=== PATIENT | female | born 1990 | race African-American/Black ===

== ENCOUNTER 2021-08-22 21:30 | Emergency (ER) | payer SELFPAY ==
[2021-08-22 23:03] VITALS: BP 128/83
[2021-08-23] MEDS ORDERED: SODIUM CHLORIDE 0.9% 1000 ML 1,000 ML IV ONE (01:19)
[2021-08-23] MEDS ORDERED: ONDANSETRON 4 MG/2 ML INJ IV ONE (01:19)
[2021-08-23] MEDS ORDERED: FAMOTIDINE 20 MG/2 ML INJ IV ONE (01:19)
[2021-08-23] MEDS ORDERED: DIPHENOXYLATE/ATROPINE TAB PO ONE (01:19)
[2021-08-23 01:45] LABS: Basophils % (Auto) 1.1 % (0.0-1.8); Eosinophils # (Auto) 0.1 K/mm3 (0.0-0.4); Eosinophils % (Auto) 2.2 % (0.0-4.3); Hemoglobin 12.3 gm/dl (10.1-14.3); Lymphocytes # (Auto) 1.2 K/mm3 (1.2-5.4); Mean Corpuscular HGB Conc 33 % (30-34); Mean Corpuscular Volume 90 fl (79-97); Monocytes # (Auto) 0.3 K/mm3 (0.0-0.8); Monocytes % (Auto) 8.2 % (0.0-7.3); Platelet Count 289 K/mm3 (140-440); Red Blood Count 4.12 M/mm3 (3.65-5.03); Red Cell Distribution Width 13.9 % (13.2-15.2)
[2021-08-23 02:09] LABS: Alanine Aminotransferase 42 units/L (7-56); Albumin 4.5 g/dL (3.9-5); BUN/Creatinine Ratio 13; Blood Urea Nitrogen 10 mg/dL (7-17); Hemolysis Index 17
[2021-08-23 02:25] LABS: Bacteria,Urine 4+ /HPF (Negative); Bilirubin,Urine NEG (Negative); Blood,Urine LG (Negative); Color,Urine Yellow (Yellow); Mucus,Urine FEW /HPF; Protein,Urine <15 mg/dL mg/dL (Negative); Urobilinogen,Urine < 2.0 mg/dL (<2.0)
[2021-08-23] MEDS ORDERED: cefTRIAXone/NS 1 GM/50 ML 1 GM/50 ML BAG IV ONE (02:48)
--- NOTE | 2021-08-23 05:13 | Emergency Department Report ---
ED N/V/D HPI - General Chief complaint: Abdominal Pain Stated complaint: NOT FEELING WELL Source: patient Mode of arrival: Ambulatory Limitations: No Limitations - History of Present Illness Initial comments: Patient is a nulliparous 30-year-old [place] female with no past medical history who presented to the ED with complaint of acute onset persistent headache, body aches and pains, diarrhea, nausea and mild diffuse abdominal pain for the last 3 days after eating at a restaurant. Patient states that she has not been able to eat anything in the last 24 hours because of persistent diarrhea and nausea. Patient denies dizziness, syncope, fever, chills, cough, sore throat, nasal and sinus congestion, dysuria, urinary frequency and urgency, vaginal discharge or vaginal bleeding and low back pain. MD complaint: nausea, vomiting, diarrhea -: Sudden, days(s) - Related Data Previous Rx's Medication Instructions Recorded Last Taken Type Diphenoxylate HCl/Atropine 10 ml PO Q8H PRN #120 ml 08/23/21 Unknown Rx [Diphenoxylate-Atropine Liq] Ibuprofen [Motrin] 600 mg PO Q8H PRN #24 tablet 08/23/21 Unknown Rx Ondansetron [Zofran Odt] 4 mg PO Q8HR PRN #15 tab.rapdis 08/23/21 Unknown Rx Sulfamethoxazole/Trimethoprim 1 each PO Q12H #20 tablet 08/23/21 Unknown Rx [Bactrim DS TAB] Allergies Allergy/AdvReac Type Severity Reaction Status Date / Time No Known Allergies Allergy Unverified 10/19/14 23:08 ED Review of Systems ROS: Stated complaint: NOT FEELING WELL Other details as noted in HPI Constitutional: denies: chills, fever Eyes: denies: eye pain, eye discharge, vision change ENT: denies: ear pain, throat pain Respiratory: denies: cough, shortness of breath, wheezing Cardiovascular: denies: chest pain, palpitations Endocrine: no symptoms reported Gastrointestinal: abdominal pain, nausea, diarrhea Genitourinary: denies: urgency, dysuria, discharge Musculoskeletal: denies: back pain, joint swelling, arthralgia Skin: denies: rash, lesions Neurological: headache. denies: weakness, paresthesias Psychiatric: denies: anxiety, depression Hematological/Lymphatic: denies: easy bleeding, easy bruising ED Past Medical Hx - Past Medical History Previous Medical History?: No - Surgical History Past Surgical History?: No - Social History Smoking Status: Never Smoker Substance Use Type: None - Medications Home Medications: Home Medications Medication Instructions Recorded Confirmed Last Taken Type Diphenoxylate HCl/Atropine 10 ml PO Q8H PRN #120 ml 08/23/21 Unknown Rx [Diphenoxylate-Atropine Liq] Ibuprofen [Motrin] 600 mg PO Q8H PRN #24 tablet 08/23/21 Unknown Rx Ondansetron [Zofran Odt] 4 mg PO Q8HR PRN #15 tab.rapdis 08/23/21 Unknown Rx Sulfamethoxazole/Trimethoprim 1 each PO Q12H #20 tablet 08/23/21 Unknown Rx [Bactrim DS TAB] ED Physical Exam - General Limitations: No Limitations General appearance: alert, in no apparent distress - Head Head exam: Present: atraumatic, normocephalic, normal inspection - Eye Eye exam: Present: normal appearance, PERRL, EOMI Pupils: Present: normal accommodation - ENT ENT exam: Present: normal exam, normal orophraynx, mucous membranes moist, TM's normal bilaterally, normal external ear exam - Neck Neck exam: Present: normal inspection, full ROM - Respiratory Respiratory exam: Present: normal lung sounds bilaterally. Absent: respiratory distress, wheezes, rales, rhonchi, chest wall tenderness, accessory muscle use, decreased breath sounds - Cardiovascular Cardiovascular Exam: Present: regular rate, normal rhythm, normal heart sounds. Absent: systolic murmur, diastolic murmur, rubs, gallop - GI/Abdominal GI/Abdominal exam: Present: soft, normal bowel sounds. Absent: tenderness, guarding, rebound, hyperactive bowel sounds, organomegaly - Extremities Exam Extremities exam: Present: normal inspection, full ROM, normal capillary refill - Back Exam Back exam: Present: normal inspection, full ROM. Absent: tenderness, CVA tenderness (R), CVA tenderness (L), muscle spasm, paraspinal tenderness - Neurological Exam Neurological exam: Present: alert, oriented X3, CN II-XII intact, normal gait, reflexes normal - Psychiatric Psychiatric exam: Present: normal affect, normal mood - Skin Skin exam: Present: warm, dry, intact, normal color. Absent: rash ED Course Vital Signs 08/22/21 22:59 Temperature 99.4 F Pulse Rate 98 H Respiratory 18 Rate Blood Pressure 128/83 [Right] O2 Sat by Pulse 98 Oximetry ED Medical Decision Making - Lab Data Result diagrams: 08/23/21 01:33 08/23/21 01:33 - Medical Decision Making This is a nulliparous 30-year-old [place] female with no past medical history who presented to the ED with complaint of acute onset persistent headache, body aches and pains, diarrhea, nausea and mild diffuse abdominal pain for the last 3 days after eating at a restaurant. Patient states that she has not been able to eat anything in the last 24 hours because of persistent diarrhea and nausea. In the ED, patient is alert and oriented x3 and is not in any distress. Lab test results were reviewed and are all nonactionable except for urinalysis that showed significant urinary tract infection. Patient was treated empirically for acute urinary tract infection in the ED as well as given antiemetics and antidiarrheal medication. On reevaluation, patient felt better and was discharged home on antibiotics and pain medications and advised to follow-up with her primary care physician in 5 to 7 days for reevaluation or return to the ED immediately if symptoms get worse. - Differential Diagnosis Gastroenteritis; UTI; GERD; dehydration; viral syndrome Critical care attestation.: If time is entered above; I have spent that time in minutes in the direct care of this critically ill patient, excluding procedure time. ED Disposition Clinical Impression: Viral gastroenteritis, Diarrhea in adult patient, Acute urinary tract infection Disposition: 01 HOME / SELF CARE / HOMELESS Is pt being admited?: No Does the pt Need Aspirin: No Condition: Stable Instructions: Abdominal Pain (ED), Viral Gastroenteritis, Adult, [id number], Urinary Tract Infection, Adult, [id number], Diarrhea, Adult, [id number] Additional Instructions: Take medication with food, drink plenty of fluids and follow-up with your primary care physician in 7 to 10 days for reevaluation. Return to the ED immediately if symptoms get worse. Prescriptions: Sulfamethoxazole/Trimethoprim [Bactrim DS TAB] 1 each PO Q12H #20 tablet Diphenoxylate HCl/Atropine [Diphenoxylate-Atropine Liq] 10 ml PO Q8H PRN #120 ml PRN Reason: Diarrhea Ibuprofen [Motrin] 600 mg PO Q8H PRN #24 tablet PRN Reason: Pain Ondansetron [Zofran Odt] 4 mg PO Q8HR PRN #15 tab.rapdis PRN Reason: Nausea Referrals: PRIMARY CARE,MD [Primary Care Provider] - 3-5 Days Forms: Work/School Release Form(ED) Time of Disposition: 05:11 Print Language: THAI
== END 2021-08-23 06:00 | disposition home or self-care (01) ==
LOC: ED 21:30
DX: A08.4 Viral intestinal infection, unspecified (principal); R19.7 Diarrhea, unspecified
CPT/HCPCS: 36415; 80053; 81001; 83690; 84703; 85025; 87086; 96361; 96365; 96375; 99283; J0696; J2405; J3490; J7030; Q0162